=== PATIENT | male | born 1975 | race Caucasian/White ===

== ENCOUNTER 2016-07-31 09:07 | Emergency (ER) | payer MEDICAID ==
[~2016-07-31] VITALS: Ht 172.7 cm; Wt 81.0 kg
[2016-07-31 10:57] LABS: CLARITY URINE CLEAR (CLEAR); COLOR URINE YELLOW (YELLOW); GLUCOSE URINE NEGATIVE (NEGATIVE); KETONES URINE NEGATIVE (NEGATIVE); LEUKOCYTE ESTERASE URINE NEGATIVE (NEGATIVE); NITRITE URINE NEGATIVE (NEGATIVE); OCCULT BLOOD URINE NEGATIVE (NEGATIVE); PROTEIN URINE NEGATIVE (NEGATIVE); SPECIFIC GRAVITY URINE 1.006 (1.005-1.030); UROBILINOGEN URINE 0.2 E.U./dL (0.2-1.0)
[2016-07-31 12:20] VITALS: BP 132/71
== END 2016-07-31 12:21 | disposition home or self-care (01) ==
LOC: ER 09:32
DX: N43.3 Hydrocele, unspecified (principal); N52.9 Male erectile dysfunction, unspecified; E78.00 Pure hypercholesterolemia, unspecified
CPT/HCPCS: 76870; 81003; 93976; 99285

== ENCOUNTER 2020-12-28 11:48 | Inpatient (IN) | payer MEDICAID, OTHER ==
[~2020-12-28] VITALS: Ht 170.2 cm; Wt 81.6 kg
[2020-12-28 15:20] LABS: BASOPHILS % 0.2 % (0.0-2.0); EOSINOPHILS % 0.2 % (0.0-5.0); HEMATOCRIT. 40.4 % (42.0-52.0); LYMPHOCYTES % 15.9 % (20.0-50.0); MEAN CORPUSCULAR HEMOGLOBIN 28.6 pg (28.0-32.0); MEAN CORPUSCULAR VOLUME 82.7 fL (80.0-94.0); MEAN PLATELET VOLUME 7.6 fl (7.4-10.4); MONOCYTES % 7.3 % (2.0-8.0); NEUTROPHILS % 76.4 % (40.0-76.0); PLATELET 249 x1000/uL (130-400); RED BLOOD CELL COUNT 4.88 mill/uL (4.7-6.1); RED CELL DISTRIBUTION WIDTH 13.9 % (11.6-14.6)
[2020-12-28 15:23] LABS: CHLORIDE 106 mEq/L (98-107)
[2020-12-28 16:35] LABS: CLARITY URINE CLEAR (CLEAR); COLOR URINE DARK YELLOW (YELLOW); KETONES URINE TRACE (NEGATIVE); LEUKOCYTE ESTERASE URINE NEGATIVE (NEGATIVE); NITRITE URINE NEGATIVE (NEGATIVE); OCCULT BLOOD URINE NEGATIVE (NEGATIVE); PROTEIN URINE TRACE (NEGATIVE)
[2020-12-28] MEDS ORDERED: CEFTRIAXONE 1 G PREMIX 50 ML IV ONE (16:45)
[2020-12-28] MEDS ORDERED: METRONIDAZOLE 500 MG PREMIX 100 ML IV ONE (16:45)
[2020-12-28] MEDS ORDERED: BUPIVACAINE HCL 0.5% (5MG/ML) 50ML ONE (18:10)
[2020-12-28] MEDS ORDERED: SKIN ADHESIVE 0.7 GM EA TOP ONE ×2 (22:04→22:05)
[2020-12-28] MEDS ORDERED: ONDANSETRON HCL 4MG/2ML INJ IV PRN ×2 (22:15→22:45)
[2020-12-28] MEDS ORDERED: HYDROCODONE/ACETAMINOPHEN 5/325MG TABLET PO PRN ×2 (22:15)
[2020-12-28] MEDS ORDERED: MORPHINE SULFATE 2 MG/ML CPJ (NOT FOR IM USE) IV PRN (22:15)
[2020-12-28] MEDS ORDERED: ROCURONIUM BROMIDE 10MG/ML VIAL 5ML IV ONE (22:18)
[2020-12-28] MEDS ORDERED: PROPOFOL 200MG/20ML VIAL IV ONE (22:18)
[2020-12-28] MEDS ORDERED: HYDROMORPHONE HCL/PF 2MG/ML (OR) ONE (22:18)
[2020-12-28] MEDS ORDERED: DEXAMETHASONE 4MG/ML 1ML VIAL ONE (22:19)
[2020-12-28] MEDS ORDERED: BACITRACIN 15GM TUBE TOP ONE (22:19)
[2020-12-28] MEDS ORDERED: NALOXONE HCL 0.4MG/ML VIAL IV PRN (22:30)
[2020-12-28] MEDS ORDERED: HYDROMORPHONE HCL/PF 2MG/ML CPJ IV PRN (22:45)
[2020-12-28] MEDS ORDERED: MEPERIDINE HCL/PF 25MG/ML CPJ IV PRN (22:45)
[2020-12-28] MEDS ORDERED: LABETALOL 5MG/ML SYR 20 MG/4 ML SYRINGE IV PRN (22:45)
[2020-12-28] MEDS ORDERED: NEOSTIGMINE METHYLSULFATE 1MG/ML 10 ML VIAL ONE (22:58)
[2020-12-28] MEDS ORDERED: GLYCOPYRROLATE 0.2 MG/ML 2ML VIAL ONE (22:58)
[2020-12-29 00:15] VITALS: BP 122/75
[2020-12-29] MEDS: DEXT 5%/0.45% NACL KCL 20MEQ/L 1,000 ML IV SCH ×2 (03:33→08:32)
[2020-12-29] MEDS: MORPHINE SULFATE 4 MG/ML CPJ (NOT FOR IM USE) IV PRN ×2 (03:57→08:36)
[2020-12-29 04:00] VITALS: BP 120/75
[2020-12-29] MEDS: SODIUM CHLORIDE 0.9% INJ 3ML FLUSH IVF SCH ×2 (05:30→13:28)
[2020-12-29 08:00] VITALS: BP 131/86
[2020-12-29 12:00] VITALS: BP 133/80
[2020-12-29 12:18] LABS: BASOPHILS % 0.1 % (0.0-2.0); HEMATOCRIT. 39.6 % (42.0-52.0); HEMOGLOBIN. 13.6 g/dL (14.0-18.0); LYMPHOCYTES % 7.2 % (20.0-50.0); MEAN CORPUSCULAR HEMOGLOBIN 28.7 pg (28.0-32.0); MEAN CORPUSCULAR VOLUME 83.9 fL (80.0-94.0); MEAN PLATELET VOLUME 7.8 fl (7.4-10.4); MONOCYTES % 4.9 % (2.0-8.0); NEUTROPHILS % 87.8 % (40.0-76.0); PLATELET 250 x1000/uL (130-400); RED BLOOD CELL COUNT 4.72 mill/uL (4.7-6.1); RED CELL DISTRIBUTION WIDTH 13.7 % (11.6-14.6)
[2020-12-29 12:24] LABS: CHLORIDE 109 mEq/L (98-107)
[2020-12-29] MEDS ORDERED: PIPERACILLIN/TAZOBACTAM 3.375 G in DEXTROSE 5% WATER 50 ML IV SCH (13:00)
[2020-12-29] MEDS ORDERED: AMOX-424 MT (13:03)
[2020-12-29] MEDS ORDERED: HYDR-4001 MT (13:03)
[2020-12-29] MEDS ORDERED: DOCU-138 MT (13:03)
[2020-12-29] MEDS ORDERED: ONDA4TAB5 MT (13:04)
[2020-12-29 13:20] VITALS: BP 133/80
== END 2020-12-29 15:13 | disposition home or self-care (01) | DRG 343 ==
LOC: ER 11:48 → MICUSO 17:05 → EDBEDREQTM 17:29 → EDBEDREQ 17:29 → 6EST 21:13 → 8WST 12-29 01:08
PROVIDERS: ADMIT Internal Medicine; ATTEND Internal Medicine
PROC: 0DTJ4ZZ Resection of Appendix, Percutaneous Endoscopic Approach (ICD-10-PCS; principal; 2020-12-28)
DX: K35.80 Unspecified acute appendicitis (principal); D64.9 Anemia, unspecified; E86.0 Dehydration; F12.90 Cannabis use, unspecified, uncomplicated; Z20.822 Contact with and (suspected) exposure to COVID-19; Z79.899 Other long term (current) drug therapy
CPT/HCPCS: 36415; 74176; 80048; 80053; 80076; 81003; 85025; 87426; 88304; 99285; J0696; J1100; J1170; J2270; J2543; J2704; J2710; J3490; J7040; J7060